=== PATIENT | female | born 1965 | race Caucasian/White ===

== ENCOUNTER 2017-04-03 14:04 | Inpatient (IN) ==
[2017-04-03] MEDS ORDERED: FLUCONAZOLE 200 MG TABLET PO STA (14:36)
[2017-04-03] MEDS ORDERED: SODIUM CHLORIDE 0.9% 1,000 ML IV STA ×2 (14:36→16:11)
[2017-04-03] MEDS ORDERED: ONDANSETRON 4 MG/2 ML VIAL IV STA (14:36)
[2017-04-03] MEDS ORDERED: KETOROLAC 30 MG/1 ML VIAL IV STA (14:36)
[2017-04-03] MEDS ORDERED: ALBUTEROL/IPRATROPIUM 3 ML NEB RESP TX STA (14:36)
[2017-04-03] MEDS ORDERED: LEVOFLOXACIN INJ 750 MG in PREMIX 1 EACH IV STA (14:36)
[2017-04-03] MEDS ORDERED: METOCLOPRAMIDE 10 MG/2 ML VIAL IV STA (14:36)
[2017-04-03] MEDS ORDERED: methylPREDNISolone SOD SUC 125 MG/2 ML VIAL IV STA (14:36)
[2017-04-03 14:50] LABS: Basophils # 0.2 10*3/uL (0.0-0.2); Basophils % 0.9 % (0.0-0.8); Eosinophils % 0.1 % (0.00-10.9); Hematocrit 47.5 VOL% (35.7-47.0); Hemoglobin 17.2 GM/DL (12.0-16.0); Immature Granulocytes % 1.5 %; Immature Granulocytes Absolute 0.27 #; Lymphocytes # 3.2 10*3/uL (1.4-4.0); Lymphocytes % 17.4 % (21.3-54.2); Mean Corpuscular HGB Conc 36.2 GM/DL (32-36); Mean Corpuscular Hemoglobin 31 PG (27-34); Mean Corpuscular Volume 86.5 FL (87-102); Mean Platelet Volume 8.7 FL (9.6-12.0); Monocytes # 0.9 10*3/uL (0.11-0.8); Neutrophils # 13.7 10*3/uL (1.4-7.4); Neutrophils % 75.1 % (38.7-73.9); Platelet Count 366 T/CUMM (130-400); Red Blood Count 5.49 MC/CUMM (3.8-5.5); Red Cell Distribution Width 12.1 % (9.3-17.3); White Blood Count 18.3 T/CUMM (4-12)
[2017-04-03] MEDS ORDERED: FLUCONAZOLE 200 MG TABLET ONE (14:55)
[2017-04-03] MEDS ORDERED: LEVOFLOXACIN INJ 150 ML IV ONE (14:55)
[2017-04-03] MEDS ORDERED: ONDANSETRON 4 MG/2 ML VIAL ONE (14:55)
[2017-04-03] MEDS ORDERED: methylPREDNISolone SOD SUC 125 MG/2 ML VIAL ONE (14:55)
[2017-04-03] MEDS ORDERED: METOCLOPRAMIDE 10 MG/2 ML VIAL ONE (14:55)
[2017-04-03] MEDS ORDERED: KETOROLAC 30 MG/1 ML VIAL ONE (14:55)
[2017-04-03 15:00] LABS: PT Patient Result 10.6 SECS
[2017-04-03 15:16] LABS: Alanine Aminotransferase 18 U/L (13-56); Albumin 3.6 G/DL (3.4-5.0); Alkaline Phosphatase 155 U/L (45-117); Aspartate Amino Transferase 9 U/L (0-37); Blood Urea Nitrogen 11 MG/DL (7-18); Calcium 8.4 MG/DL (8.5-10.1); Glucose 353 MG/DL (74-106); Osmolality,Calculated 280.2 MOS/KG (273-304); Potassium 3.9 MMOL/L (3.5-5.1); Sodium 134 MMOL/L (136-145); Total Protein 7.5 G/DL (6.4-8.3); Troponin I Only < 0.015 NG/ML (0.00-0.045)
[2017-04-03 15:38] LABS: Apearance,Urine Slightly Hazy (Clear); Bilirubin,Urine Negative (Negative); Blood, Urine Small mg/dL (Negative); Glucose,Urine (UA) >=500 mg/dL (Negative); Hyaline Casts,Urine 1 /LPF (0-3); Ketones,Urine 80 mg/dL (Negative); Mucus,Urine Occasional /LPF (Occasional); Nitrite,Urine Negative (Negative); Protein,Urine 30 MG/DL; RBC,Urine <1 /HPF (0-4); Squamous Epithelial Cell,Urine Occasional /HPF (0-10); Urine Color Yellow (Yellow); Urine Specific Gravity 1.015 (1.001-1.035); Urine Urobilinogen < 2.0 EU/DL (0.2-1.0); WBC,Urine 1 /HPF (0-6)
[2017-04-03] MEDS ORDERED: SODIUM CHLORIDE 0.9% 1,000 ML IV ONE (16:49)
[2017-04-03] MEDS ORDERED: INSULIN REGULAR 100 UNIT/ML IV ONE (16:49)
[2017-04-03] MEDS ORDERED: MAGNESIUM SULF RIDER 2 GM in PREMIX 1 EACH IV PRN (16:49)
[2017-04-03] MEDS ORDERED: DEXTROSE 50% 25 GM/50 ML VIAL IV PRN ×2 (16:49)
[2017-04-03] MEDS ORDERED: SODIUM PHOSPHATE INJ 16.3 MMOL in SODIUM CHLORIDE 0.9% 250 ML IV PRN (16:49)
[2017-04-03] MEDS ORDERED: MAGNESIUM SULF RIDER 4 GM in PREMIX 1 EACH IV PRN (16:49)
[2017-04-03] MEDS ORDERED: POTASSIUM CHLORIDE RIDER 10 MEQ in PREMIX 1 EACH IV PRN (16:49)
[2017-04-03] MEDS ORDERED: LABETALOL 20 MG/4 ML SYRINGE IV STA (17:06)
[2017-04-03] MEDS ORDERED: LABETALOL 20 MG/4 ML SYRINGE IV PRN (17:10)
[2017-04-03 17:13] LABS: Lactic Acid 3.5 MMOL/L (0.4-2.0)
[2017-04-03 17:24] LABS: Magnesium 2.2 MG/DL (1.8-2.4); Phosphorous 3.4 MG/DL (2.5-4.9)
[2017-04-03 17:29] LABS: ABG HCO3 1.1 MMOL/L (20-26); ABG PO2 199.7 MM HG (80-95); ABG TCO2 1.3 MMOL/L (23-27)
[2017-04-03 17:33] LABS: ABG PCO2 8.1 MM HG (35-48); ABG PH 6.835 (7.35-7.45)
[2017-04-03] MEDS ORDERED: INSULIN REGULAR 100 UNIT/ML ONE (17:58)
[2017-04-03] MEDS ORDERED: CLORAZEPATE 7.5 MG TABLET PO PRN (18:16)
[2017-04-03] MEDS: INSULIN REGULAR DRIP 100 ML IV SCH (18:45)
[2017-04-03 18:49] LABS: Apearance,Urine Slightly Hazy (Clear); Bacteria,Urine Occasional /HPF (Few); Bilirubin,Urine Negative (Negative); Blood, Urine Small mg/dL (Negative); Glucose,Urine (UA) >=500 mg/dL (Negative); Hyaline Casts,Urine 1 /LPF (0-3); Ketones,Urine 80 mg/dL (Negative); Mucus,Urine Occasional /LPF (Occasional); Nitrite,Urine Negative (Negative); Protein,Urine 30 MG/DL; RBC,Urine 1 /HPF (0-4); Squamous Epithelial Cell,Urine Occasional /HPF (0-10); Urine Color Straw (Yellow); Urine Specific Gravity 1.014 (1.001-1.035); Urine Urobilinogen < 2.0 EU/DL (0.2-1.0); WBC,Urine <1 /HPF (0-6)
[2017-04-03] MEDS: SODIUM BICARB INJ 100 MEQ in STERILE WATER INJ 400 ML IV PRN ×2 (18:50→22:34)
[2017-04-03 19:24] LABS: Calcium 7.5 MG/DL (8.5-10.1); Osmolality,Calculated 291.8 MOS/KG (273-304); Potassium 3.7 MMOL/L (3.5-5.1)
[2017-04-03] MEDS: SODIUM CHLORIDE 0.9% 1,000 ML IV SCH (21:05)
[2017-04-03 21:32] LABS: Allen Test Positive
[2017-04-03 21:37] LABS: ABG Base Excess -26.8 MMOL/L (-2.5-2.5); ABG HCO3 1.7 MMOL/L (20-26); ABG Oxygen Saturation 98.8 % (95-100); ABG PO2 175.5 MM HG (80-95); ABG TCO2 1.9 MMOL/L (23-27)
[2017-04-03 21:39] LABS: ABG PCO2 8.3 MM HG (35-48); ABG PH 7.025 (7.35-7.45)
[2017-04-03] MEDS ORDERED: SODIUM CHLORIDE 0.9% 1,000 ML IV SCH (21:49)
[2017-04-04 00:24] LABS: Calcium 7.5 MG/DL (8.5-10.1); Osmolality,Calculated 290.5 MOS/KG (273-304); Potassium 4.4 MMOL/L (3.5-5.1)
[2017-04-04] MEDS: SODIUM CHLOR 0.45% KCL 20 MEQ 20 MEQ/1,000 ML BAG IV SCH ×2 (00:44→05:57)
[2017-04-04] MEDS: ONDANSETRON 4 MG/2 ML VIAL IV PRN (01:46)
[2017-04-04 04:59] LABS: Basophils # 0.1 10*3/uL (0.0-0.2); Basophils % 0.6 % (0.0-0.8); Hematocrit 44.3 VOL% (35.7-47.0); Hemoglobin 16.1 GM/DL (12.0-16.0); Immature Granulocytes % 1.8 %; Immature Granulocytes Absolute 0.32 #; Lymphocytes # 0.9 10*3/uL (1.4-4.0); Lymphocytes % 5.1 % (21.3-54.2); Mean Corpuscular HGB Conc 36.3 GM/DL (32-36); Mean Corpuscular Hemoglobin 31 PG (27-34); Mean Corpuscular Volume 85.5 FL (87-102); Monocytes # 0.6 10*3/uL (0.11-0.8); Monocytes % 3.6 % (1.7-12.7); Neutrophils # 15.6 10*3/uL (1.4-7.4); Neutrophils % 88.9 % (38.7-73.9); Platelet Count 304 T/CUMM (130-400); Red Blood Count 5.18 MC/CUMM (3.8-5.5); Red Cell Distribution Width 11.9 % (9.3-17.3); White Blood Count 17.5 T/CUMM (4-12)
[2017-04-04 05:38] LABS: Calcium 7.8 MG/DL (8.5-10.1); Osmolality,Calculated 288.4 MOS/KG (273-304); Potassium 3.4 MMOL/L (3.5-5.1)
[2017-04-04 05:41] LABS: Phosphorous 1.5 MG/DL (2.5-4.9)
[2017-04-04] MEDS: SODIUM CHLORIDE 0.9% 1,000 ML IV SCH (06:54)
[2017-04-04] MEDS ORDERED: SODIUM BICARBONATE 50 MEQ/50 ML SYRINGE IV ONE ×3 (07:54→12:54)
[2017-04-04] MEDS ORDERED: LOSARTAN 50 MG TABLET PO SCH (09:00)
[2017-04-04 09:17] LABS: ABG Base Excess -18.2 MMOL/L (-2.5-2.5); ABG HCO3 4.6 MMOL/L (20-26); ABG Oxygen Saturation 98.3 % (95-100); ABG PO2 102.8 MM HG (80-95); ABG TCO2 4.9 MMOL/L (23-27); Allen Test Positive
[2017-04-04 09:22] LABS: Calcium 8.3 MG/DL (8.5-10.1); Potassium 4.1 MMOL/L (3.5-5.1)
[2017-04-04] MEDS: POTASSIUM CHLORIDE IV SCH ×3 (09:28→23:10)
[2017-04-04] MEDS: SODIUM BICARB IV SCH ×3 (09:28→23:10)
[2017-04-04] MEDS: STERILE WATER IV SCH ×3 (09:28→23:10)
[2017-04-04] MEDS ORDERED: SODIUM CHLORIDE 0.45% 1,000 ML IV SCH (09:49)
[2017-04-04 10:17] LABS: ABG PCO2 9.8 MM HG (35-48)
[2017-04-04 12:06] LABS: ABG Base Excess -13.8 MMOL/L (-2.5-2.5); ABG HCO3 14.2 MMOL/L (20-26); ABG Oxygen Saturation 98.9 % (95-100); ABG PH 7.382 (7.35-7.45); ABG PO2 95.7 MM HG (80-95); ABG TCO2 7.8 MMOL/L (23-27)
[2017-04-04 12:24] LABS: ABG PCO2 15.5 MM HG (35-48)
[2017-04-04 12:54] LABS: Calcium 8.1 MG/DL (8.5-10.1); Osmolality,Calculated 283.1 MOS/KG (273-304); Potassium 2.7 MMOL/L (3.5-5.1)
[2017-04-04] MEDS ORDERED: POTASSIUM CHLORIDE 20 MEQ TABLET PO ONE ×3 (13:21→19:00)
[2017-04-04] MEDS ORDERED: BISACODYL 5 MG TABLET PO ONE (14:57)
[2017-04-04 16:19] LABS: ABG HCO3 14.7 MMOL/L (20-26); ABG Oxygen Saturation 99.3 % (95-100); ABG PH 7.429 (7.35-7.45); ABG TCO2 7.9 MMOL/L (23-27); Allen Test Positive
[2017-04-04 16:32] LABS: Calcium 8.3 MG/DL (8.5-10.1); Potassium 2.9 MMOL/L (3.5-5.1)
[2017-04-04] MEDS: LEVOFLOXACIN INJ 750 MG in PREMIX 1 EACH IV SCH (17:00)
[2017-04-04] MEDS: INSULIN REGULAR DRIP 100 ML IV SCH (19:12)
[2017-04-04 21:10] LABS: Calcium 7.9 MG/DL (8.5-10.1); Osmolality,Calculated 282.3 MOS/KG (273-304); Potassium 3.2 MMOL/L (3.5-5.1)
[2017-04-05 00:08] LABS: Calcium 7.9 MG/DL (8.5-10.1); Osmolality,Calculated 281.1 MOS/KG (273-304); Potassium 4.3 MMOL/L (3.5-5.1)
[2017-04-05] MEDS: ONDANSETRON 4 MG/2 ML VIAL IV PRN (02:25)
[2017-04-05 05:00] LABS: Basophils % 0.2 % (0.0-0.8); Eosinophils % 0.1 % (0.00-10.9); Hematocrit 40.2 VOL% (35.7-47.0); Hemoglobin 13.7 GM/DL (12.0-16.0); Immature Granulocytes % 0.6 %; Immature Granulocytes Absolute 0.06 #; Lymphocytes # 1.1 10*3/uL (1.4-4.0); Lymphocytes % 11.9 % (21.3-54.2); Mean Corpuscular HGB Conc 34.1 GM/DL (32-36); Mean Corpuscular Hemoglobin 31 PG (27-34); Mean Corpuscular Volume 90.1 FL (87-102); Mean Platelet Volume 9.1 FL (9.6-12.0); Monocytes # 1.1 10*3/uL (0.11-0.8); Neutrophils # 7.1 10*3/uL (1.4-7.4); Neutrophils % 75.2 % (38.7-73.9); Platelet Count 198 T/CUMM (130-400); Red Blood Count 4.46 MC/CUMM (3.8-5.5); Red Cell Distribution Width 12.4 % (9.3-17.3); White Blood Count 9.4 T/CUMM (4-12)
[2017-04-05] MEDS: POTASSIUM CHLORIDE IV SCH ×2 (07:13→13:59)
[2017-04-05] MEDS: SODIUM BICARB IV SCH ×2 (07:13→13:59)
[2017-04-05] MEDS: STERILE WATER IV SCH ×2 (07:13→13:59)
[2017-04-05] MEDS ORDERED: GLUCAGON 1 MG VIAL IM PRN (08:28)
[2017-04-05] MEDS ORDERED: INFLUENZA VIRUS VACCINE 0.5 ML SYRINGE IM ONE (09:00)
[2017-04-05] MEDS: POLYETHYLENE GLYCOL POWDER 17 GM PACK PO SCH (09:18)
[2017-04-05 09:20] LABS: Calcium 8.2 MG/DL (8.5-10.1); Osmolality,Calculated 279.4 MOS/KG (273-304); Potassium 3.5 MMOL/L (3.5-5.1)
[2017-04-05] MEDS: INSULIN GLARGINE 100 UNIT/ML SUBCUT SCH (10:24)
[2017-04-05] MEDS: INSULIN LISPRO 100 UNIT/ML SUBCUT SCH ×3 (11:42→20:43)
[2017-04-05] MEDS: LEVOFLOXACIN INJ 750 MG in PREMIX 1 EACH IV SCH (20:43)
[2017-04-06 05:58] LABS: Calcium 8.4 MG/DL (8.5-10.1); Osmolality,Calculated 289.7 MOS/KG (273-304); Potassium 3.4 MMOL/L (3.5-5.1)
[2017-04-06] MEDS: INSULIN LISPRO 100 UNIT/ML SUBCUT SCH ×4 (09:50→23:31)
[2017-04-06] MEDS: POTASSIUM CHLORIDE 20 MEQ TABLET PO SCH ×3 (09:50→15:07)
[2017-04-06] MEDS: INSULIN GLARGINE 100 UNIT/ML SUBCUT SCH (09:50)
[2017-04-06] MEDS: POLYETHYLENE GLYCOL POWDER 17 GM PACK PO SCH (09:51)
[2017-04-06] MEDS ORDERED: SODIUM CHLORIDE 0.45% 1,000 ML IV ONE (10:13)
[2017-04-06] MEDS: cephALEXin 500 MG CAPSULE PO SCH ×2 (12:51→23:31)
[2017-04-07] MEDS: INSULIN LISPRO 100 UNIT/ML SUBCUT SCH ×2 (07:23→12:39)
[2017-04-07] MEDS: cephALEXin 500 MG CAPSULE PO SCH (08:45)
[2017-04-07] MEDS: POLYETHYLENE GLYCOL POWDER 17 GM PACK PO SCH (08:45)
[2017-04-07] MEDS: INSULIN GLARGINE 100 UNIT/ML SUBCUT SCH (08:45)
[2017-04-07 12:20] VITALS: BP 121/80
== END 2017-04-07 13:05 | disposition home or self-care (01) | DRG 639 ==
LOC: N.ED 14:04 → N.EDINP 16:50 → N.ICU 17:51 → N.TELES 04-04 16:19 → N.ICU 04-04 16:33 → N.2E 04-05 14:06
PROVIDERS: ADMIT Internal Medicine; ATTEND Internal Medicine